=== PATIENT | female | born 1980 ===

== ENCOUNTER 2020-05-14 17:39 | Inpatient (IN) | payer OTHER ==
[~2020-05-14] VITALS: Ht 170.2 cm; Wt 3.6 kg
[2020-05-14] MEDS ORDERED: PRENATAL CAPLE1 EAC1 (18:50)
== END 2020-05-17 15:07 | disposition home or self-care (01) | DRG 787 ==
LOC: LDR 17:39 → O/R 17:39 → OB/GYN 05-15 13:17
PROVIDERS: ADMIT Specialist; ATTEND Specialist
PROC: 4A1HXHZ Monitoring of Products of Conception, Cardiac Sound, External Approach (ICD-10-PCS; 2020-05-15)
PROC: 3E033VJ Introduction of Other Hormone into Peripheral Vein, Percutaneous Approach (ICD-10-PCS; 2020-05-15)
PROC: 10D00Z1 Extraction of Products of Conception, Low, Open Approach (ICD-10-PCS; principal; 2020-05-15 09:00)
DX: O82 Encounter for cesarean delivery without indication (principal); O98.713 Human immunodeficiency virus [HIV] disease complicating pregnancy, third trimester; B20 Human immunodeficiency virus [HIV] disease; Z3A.38 38 weeks gestation of pregnancy; Z37.0 Single live birth; K66.0 Peritoneal adhesions (postprocedural) (postinfection); Z98.891 History of uterine scar from previous surgery